=== PATIENT | male | born 2000 | race Caucasian/White ===

== ENCOUNTER 2022-05-23 16:45 | Emergency (ER) | payer OTHER, SELFPAY ==
[2022-05-23 16:46] VITALS: BP 134/78; PULSE 122; RESP 11; TEMP 37; O2SAT 99; BMI 29.6
--- NOTE | 2022-05-23 16:52 | EDS_ITS ---
HPI History of Present Illness Chief Complaint: Allergic Reaction Detail of Chief Complaint: Rash and itching Informant: patient Onset/Context/Timing Onset: Today and Hours Context: Sudden Onset Timing: Continuous Current Severity: Moderate Maximum Severity: Moderate Narrative Narrative: 22-year-old male history of ADHD on Vyvanse. Said a normal breakfast and lunch today. Was eating a cookie with pecans in it and right after that he started having a rash, itching and minimal swelling of his lip. Denies recent illness. Has never had allergic reaction like this before. Prior similar symptoms: No Recent Illness/Hospitalization: No PFSH PFSH Home Medications prednisone 50 mg tablet 50 mg PO DAILY 5 days #5 tabs 05/23/22 [Rx Last Taken Unknown] Allergy/AdvReac Type Severity Reaction Status Date / Time pecan nut [pecans] Allergy Angioedema Verified 05/23/22 16:49 Social History Smoking Status: Never smoker ROS ROS ED ROS Narrative No recent illness. Review of Systems ROS Unobtainable: Denies due to encephalopathy Constitutional Constitutional ED: Denies chills or fever(s) Eyes Eyes: Denies blurry vision ENT ENT ED: Denies ear pain Cardiovascular Cardiovascular: Denies chest pain Respiratory/Chest Respiratory/Chest: Denies cough Gastrointestinal Gastrointestinal: Denies abdominal pain Genitourinary Genitourinary ED: Denies dysuria Musculoskeletal Musculoskeletal: Denies arthralgias Integumentary Reports rash; Denies abscess Neurologic Neurologic: Denies headache(s) Psychiatric Psychiatric: Denies anxiety Endocrine Endocrinology: Denies cold intolerance Hematologic/Lymphatic Hematologic/Lymphatic: Reports none Allergic/Immunologic Allergic/Immunologic ED: Reports mouth swelling; Denies tongue swelling EXAM Physical Exam Narrative Exam Narrative: Well-appearing 22-year-old male vital signs stable afebrile. Pulse ox 90% on room air no signs hypoxia. H EENT exam tongue normal posterior pharynx normal minimal swelling to his lower lip. Rash on his face consistent with allergic reaction. It does darius. Neck nontender no JVD. Lungs clear to auscultation bilaterally. Heart tachycardic rate about 115. Normal. Chest nontender. Abdomen soft nontender. He does have rash consistent with allergic reaction on his chest and abdomen also on his upper back. No petechiae or purpura. Moving all 4 extremities. Nontender. No edema. Const Vital Signs: 05/23/22 16:46 Temperature 98.6 F Temperature Source Temporal Pulse Rate 122 H Respiratory Rate 11 L Blood Pressure 134/78 H Blood Pressure Mean 96 Pulse Ox 99 Oxygen Delivery Method Room Air Positive well nourished and well developed; Negative for cachectic, contractures or unkempt General Appearance ED: well developed and NAD; Negative for unkempt, cachectic, contractures, cyanotic, diaphoretic or pallor Nutritional Appearance: Negative for cachectic HEENT Reports moist mucous membranes Negative for trauma or tenderness Eyes PERRL and EOMs intact bilaterally General Eye ED: Negative for pale conjunctiva or scleral icterus Neck no lymphadenopathy, supple and no JVD General: Negative for tenderness Lymph Lymphatic: Negative for other Chest Wall inspection of chest normal and palpation of chest normal Chest: Negative for other Resp normal respiratory effort and clear to auscultation bilaterally Effort and Inspection: Negative for retractions Auscultation: Negative for rales, rhonchi or wheezes Cardio regular rhythm, S1 normal heart sound, S2 normal heart sound and no murmurs; Negative for regular rate Rate: tachycardic GI normal to inspection, nondistended, normoactive bowel sounds, non-tender, non- distended and no masses Inspection: Negative for abdominal distention Auscultation: normoactive bowel sounds Palpation: soft; Negative for tender Back/Spine no CVA tenderness General Back: Negative for CVA tenderness Cervical Spine: Negative for cervical spine tenderness Thoracic Spine / Upper Back: Negative for thoracic spinal tenderness Lumbar Spine / Lower Back: Negative for lumbar spinal tenderness Extremity normal to inspection General Extremety ED: Negative for edema or tenderness General Extremity: Negative for edema Neuro oriented x3 and CN's II-XII intact bilaterally Sensorium / Orientation: alert; Negative for orientation impaired, lethargic or stuporous Motor Exam: strength 5/5 throughout Psych mental status grossly normal Appearance: Negative for unkempt Attitude: No agitated Mood & Affect: Negative for depressed, anxious or tearful Skin No no rashes or lesions noted, no wounds and skin turgor normal General Skin Exam: Negative for jaundice or pallor Lesions: No lesion noted Rashes: rashes noted Trauma: Negative for abrasion Wounds: Negative for wounds noted MDM MDM MDM Narrative Medical decision making narrative: 22-year-old healthy male has a generalized allergic reaction most likely secondary to PICC line not 7:00 he. Its been almost 2 hours since the initial ingestion of the cooking. He will be treated with IV Solu-Medrol, Benadryl and Pepcid. He did take oral Benadryl which initially improved his symptoms. He is in no distress. Currently this is not an anaphylactic reaction. Repeat exam at 5:30 PM patient doing well. Rash started to resolve. His itching is improving. He looks and feels better. He will be observed for another half an hour or so if he is doing well be discharged home with prednisone as needed for generalized allergic reaction. Repeat exam patient doing great at 6:18 PM. Feels fine to be discharged back to school. He knows return if any problems. Written for prescription of prednisone as needed.. Discharge Plan Triage Chief Complaint: Allergic Reaction ED Provider: Torin Streeter Dx/Rx/DC Orders Clinical Impression: Allergic reaction Instructions: ED General Allergic Reactions Prescriptions: New prednisone 50 mg tablet 50 mg PO DAILY 5 Days Qty: 5 0RF Primary Care Provider: JANKI ESPARZA Referrals: Ovidio Crouch MD [Med Staff - [facility]] - As Needed NOT,DEFINED [Non-Staff] - Activity Restrictions/Additional Instructions: Benadryl as needed for itching. Prednisone daily as needed if the rash has not resolved. Most likely allergic reaction to the pecans. Avoid pecans. Return if a lot worse but this should progressively improve and resolve. Disposition Disposition: Home, Self Care
[2022-05-23] MEDS: DiphenhydrAMINE 50 MG/ML Syringe 25 MG IV (16:55)
[2022-05-23] MEDS: MethylPREDNISolone 125 MG/2 ML Vial IV (16:55)
[2022-05-23] MEDS: Famotidine 200 MG/20 ML MDV 20 MG in 0.9% Normal Saline (Pres. free 8 ML 300 MG IV (17:25)
== END 2022-05-23 18:22 | disposition home or self-care (01) ==
PROVIDERS: Emergency Provider Emergency Medicine; Visit Provider Emergency Medicine
DX: T78.40XA Allergy, unspecified, initial encounter (principal); F90.9 Attention-deficit hyperactivity disorder, unspecified type; Z79.899 Other long term (current) drug therapy; Z79.52 Long term (current) use of systemic steroids
CPT/HCPCS: 96374; 96375; 99282; J7030; A4216; J3490